=== PATIENT | female | born 1965 | race Native Hawaiian/Other Pacific Islander ===

== ENCOUNTER 2020-11-23 12:54 | Outpatient (CLI) | payer BC ==
[~2020-11-23] VITALS: Ht 157.5 cm; Wt 81.2 kg
== END 2020-11-23 19:44 | disposition home or self-care (01) ==
LOC: INF 12:54
PROVIDERS: ATTEND Family Medicine
DX: Z23 Encounter for immunization (principal); U07.1 COVID-19
CPT/HCPCS: 96365; M0244